=== PATIENT | female | born 2000 ===

== ENCOUNTER 2021-04-01 15:01 | Outpatient (CLI) | payer OTHER | END 2021-04-01 15:49 | disposition home or self-care (01) | LOC: PRENATAL 15:01 | PROVIDERS: ATTEND Obstetrics & Gynecology Maternal & Fetal Medicine | DX: O35.0XX0 Maternal care for (suspected) central nervous system malformation in fetus, not applicable or unspecified (principal); O99.210 Obesity complicating pregnancy, unspecified trimester; O35.3XX0 Maternal care for (suspected) damage to fetus from viral disease in mother, not applicable or unspecified ==

== ENCOUNTER 2021-05-08 12:54 | Outpatient (CLI) | payer OTHER ==
[2021-05-08] MEDS ORDERED: FOLIC ACID0.8 MG PO (14:14)
[2021-05-08] MEDS ORDERED: PRENATAL TABLE1 EAC1 PO (14:14)
[2021-05-08] MEDS ORDERED: NASAL MIST126 ML (14:15)
[2021-05-08] MEDS ORDERED: CEPHALEXIN500 MG PO (15:29)
[2021-05-08] MEDS ORDERED: FUSION PLUS CA1 EACH PO (15:29)
== END 2021-05-08 17:04 | disposition home or self-care (01) ==
LOC: OBS/DEL 12:54
PROVIDERS: ATTEND Obstetrics & Gynecology
DX: O23.43 Unspecified infection of urinary tract in pregnancy, third trimester (principal); N39.0 Urinary tract infection, site not specified; O99.013 Anemia complicating pregnancy, third trimester; Z3A.29 29 weeks gestation of pregnancy

== ENCOUNTER 2021-05-24 10:24 | Outpatient (CLI) | payer OTHER ==
[~2021-05-24 10:24] MED LIST: CEPHALEXIN500 MG PO; FOLIC ACID0.8 MG PO; FUSION PLUS CA1 EACH PO; NASAL MIST126 ML; PRENATAL TABLE1 EAC1 PO
== END 2021-05-24 11:24 | disposition home or self-care (01) ==
LOC: NST 10:24
PROVIDERS: ATTEND Obstetrics & Gynecology
DX: Z34.83 Encounter for supervision of other normal pregnancy, third trimester (principal)

== ENCOUNTER 2021-06-04 21:32 | Outpatient (CLI) | payer OTHER | END 2021-06-05 13:23 | disposition home or self-care (01) | LOC: OBS/DEL 21:32 | PROVIDERS: ATTEND Obstetrics & Gynecology | DX: O99.013 Anemia complicating pregnancy, third trimester (principal); Z3A.34 34 weeks gestation of pregnancy; R42 Dizziness and giddiness ==

== ENCOUNTER → 2021-06-18 | Outpatient (CLI) | payer OTHER ==
[~2021-06-18] VITALS: Ht 152.4 cm; Wt 88.9 kg
== END | disposition home or self-care (01) ==
LOC: OBS/DEL 13:55
PROVIDERS: ATTEND Student in an Organized Health Care Education/Training Program
DX: O36.8130 Decreased fetal movements, third trimester, not applicable or unspecified (principal); Z3A.35 35 weeks gestation of pregnancy

== ENCOUNTER 2021-07-11 05:41 | Inpatient (IN) | payer OTHER ==
[~2021-07-11] VITALS: Ht 152.4 cm; Wt 93.4 kg
== END 2021-07-13 13:44 | disposition home or self-care (01) | DRG 807 ==
LOC: OB/GYN 05:41 → LDR 05:41 → OB/GYN 21:28
PROVIDERS: ADMIT Obstetrics & Gynecology; ATTEND Obstetrics & Gynecology
PROC: 10E0XZZ Delivery of Products of Conception, External Approach (ICD-10-PCS; principal; 2021-07-11)
PROC: 0HQ9XZZ Repair Perineum Skin, External Approach (ICD-10-PCS; 2021-07-11)
PROC: 0UQMXZZ Repair Vulva, External Approach (ICD-10-PCS; 2021-07-11)
PROC: 4A1HXCZ Monitoring of Products of Conception, Cardiac Rate, External Approach (ICD-10-PCS; 2021-07-11)
PROC: 3E033VJ Introduction of Other Hormone into Peripheral Vein, Percutaneous Approach (ICD-10-PCS; 2021-07-11)
DX: O70.0 First degree perineal laceration during delivery (principal); O71.82 Other specified trauma to perineum and vulva; Z37.0 Single live birth; Z3A.38 38 weeks gestation of pregnancy; Z20.822 Contact with and (suspected) exposure to COVID-19